=== PATIENT | male | born 1950 | race Caucasian/White ===

== ENCOUNTER 2016-09-21 08:40 | Emergency (ER) | payer OTHER ==
[2016-09-21 09:06] VITALS: TEMP 98.4; BMI 20.7
--- NOTE | 2016-09-21 09:30 | PDOC ---
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 with [employer] all day He is complaining of 2-3 weeks of progressive diffuse rash It was itchy, and he was treated with 2 courses of prednisone taper, which did help partially initially, but then it came back immediately as soon as he started tapering He denies any fevers or chills He denies any history of cancer or recent chemotherapy, or any immunosuppressive drugs He denies any lesions on his mouth He does admit to some lesions on his palms and soles His female zinc plating machine operator is sleeping in the same bed with him and she has no rash He denies any wheezing or difficulty breathing Remainder of the review of systems is negative Past History - Past Medical History Allergies/Adverse Reactions: Allergies Allergy/AdvReac Type Severity Reaction Status Date / Time Penicillins Allergy Verified 09/21/16 08:59 Home Medications: Ambulatory Orders Allopurinol [Zyloprim] 300 mg PO DAILY 11/25/11 Other medical history: HEP B,GOUT - Psycho/Social/Smoking Cessation Hx Anxiety: No Suicidal Ideation: No Smoking Status: Yes Smoking History: Current every day smoker Years of Tobacco Use: 40 Have you smoked in the past 12 months: Yes Number of Cigarettes Smoked Daily: 20 Information on smoking cessation initiated: Yes 'Breaking Loose' booklet given: 09/21/16 Hx Alcohol Use: Yes (BEER 3-6 PER/DAY) Drug/Substance Use Hx: No Substance Use Type: Alcohol *Physical Exam - Vital Signs Last Vital Signs Temp Pulse Resp BP Pulse Ox 98.4 F 93 H 20 181/91 96 09/21/16 08:41 09/21/16 08:41 09/21/16 08:41 09/21/16 08:41 09/21/16 08:41 - Physical Exam Comments: 09/21/16 09:29 Physical exam Last Vital Signs Temp Pulse Resp BP Pulse Ox 98.4 F 93 H 20 181/91 96 09/21/16 08:41 09/21/16 08:41 09/21/16 08:41 09/21/16 08:41 09/21/16 08:41 Patient is alert and ambulatory and answering questions Mouth and oropharynx is benign, conjunctiva nml Skin- There is a diffuse maculopapular rash, which is almost confluent in places There is a shingles like rash on the thighs bilaterally, with blisters and bullae There is excoriation of other areas of the rash, from the patient scratching at it, but no other blisters or bullae are noted There is some rash noted on the palms bilaterally There is no desquamation or peeling Lungs - clear Heart - regular ED Treatment Course - LABORATORY CBC & Chemistry Diagram: 09/21/16 09:32 09/21/16 09:32 Medical Decision Making - Medical Decision Making 09/21/16 09:35 Concerned about Gamez-Shawn syndrome, versus bullous pemphigoid, versus disseminated zoster, versus secondary syphilis rash, verses drug rash from allopurinol 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, and it's unclear what chemicals he may be exposed to Since prednisone has helped at the beginning of both tapers, will give a trial of IV Solu-Medrol and Benadryl, and check VDRL/RPR, HIV, and lab work 09/21/16 12:25 Laboratory Results - last 24 hr 09/21/16 09/21/16 09/21/16 09:21 09:32 09:32 WBC 8.8 RBC 5.33 Hgb 17.1 H Hct 50.2 H MCV 94.2 MCHC 34.2 RDW 13.4 Plt Count 177 MPV 8.2 ESR Sodium Potassium Chloride Carbon Dioxide Anion Gap BUN Creatinine Creat Clearance w eGFR Random Glucose Calcium Total Bilirubin AST ALT Alkaline Phosphatase Total Protein Albumin RPR Titer Nonreactive HIV 1&2 Antibody Screen Negative HIV P24 Antigen Negative 09/21/16 09/21/16 09:32 09:34 WBC RBC Hgb Hct MCV MCHC RDW Plt Count MPV ESR 2 Sodium 138 Potassium 4.2 Chloride 97 L Carbon Dioxide 30 H Anion Gap 11 BUN 12 Creatinine 0.8 Creat Clearance w eGFR > 60 Random Glucose 111 H Calcium 9.6 Total Bilirubin 0.6 AST 24 ALT 20 Alkaline Phosphatase 76 Total Protein 7.1 Albumin 4.0 RPR Titer HIV 1&2 Antibody Screen HIV P24 Antigen HIV-negative RPR negative ESR - 2 Patient somewhat improved after steroids and Benadryl and Pepcid Case discussed with Dr. Suzanne Ulrich, sales support technician Will send patient directly to her office now for further evaluation Pt is well appearing with nml vital signs and nml labwork Dr Ulrich will call me and send the pt back to the ED if there is any reason to admit pt. Addendum spoke with Dr Ulrich after she evaluated the pt in her office. Pt is well appearing with nml blodwork. Biopsy of lesions done by Dr Ulrich in the office no clinical indication for admission per Dr Ulrich for his dermatological condition *DC/Admit/Observation/Transfer Diagnosis at time of Disposition: Rash and nonspecific skin eruption - Discharge Dispostion Disposition: HOME Condition at time of disposition: Stable - Referrals Referrals: Corie Ulrich [Staff Physician] - (You are to go directly to Dr. Ulrich's office now-she is expecting you) - Patient Instructions Additional Instructions: You are to go directly to Dr. Ulrich's office now-she is expecting you
[2016-09-21] MEDS ORDERED: methylPREDNISolone NA SUCC 125 MG/2 ML VIAL IVPB ONE (09:33)
[2016-09-21] MEDS ORDERED: FAMOTIDINE 20 MG/50 ML IVPB 50 ML IVPB ONE ×2 (09:34→09:39)
[2016-09-21] MEDS ORDERED: methylPREDNISolone NA SUCC 125 MG/2 ML VIAL ONE (09:39)
[2016-09-21 10:42] LABS: ALK PHOS 76 U/L (32-92); ANION GAP 11 (8-16); BILIRUBIN,TOTAL 0.6 mg/dl (0.2-1.0); CALCIUM 9.6 mg/dl (8.4-10.2); CO2 30 mmol/L (22-28); CREATININE 0.8 mg/dl (0.6-1.3); GLUCOSE,RANDOM 111 mg/dl (74-106); SGOT/AST 24 U/L (10-42); SGPT/ALT 20 U/L (10-40); TOT PROT 7.1 g/dl (6.4-8.3)
[2016-09-21 11:01] LABS: MCH 32.2 pg (25.7-33.7); MCHC 34.2 g/dl (32.0-35.9); MEAN CELL VOLUME 94.2 fl (80-96); MEAN PLT VOLUME 8.2 fl (7.5-11.1); PLATELET COUNT 177 K/MM3 (134-434); RDW 13.4 % (11.9-15.9); WHITE BLOOD COUNT 8.8 K/mm3 (4.0-10.0)
[2016-09-21 11:45] VITALS: BP 164/91; PULSE 88
[2016-09-21 12:14] LABS: HIV 1 & 2 AB NEGATIVE; HIV 1 AGp24 NEGATIVE
== END 2016-09-21 12:37 | disposition home or self-care (01) ==
LOC: FER 08:40
PROC: 3E033GC Introduction of Other Therapeutic Substance into Peripheral Vein, Percutaneous Approach (ICD-10-PCS; principal; 2016-09-21)
DX: R21 Rash and other nonspecific skin eruption (principal); B19.10 Unspecified viral hepatitis B without hepatic coma; F17.210 Nicotine dependence, cigarettes, uncomplicated
CPT/HCPCS: 36415; 80053; 85027; 85651; 86593; 87389; 99283-25